=== PATIENT | male | born 1960 | race Caucasian/White ===

== ENCOUNTER 2021-03-28 06:10 | Day surgery (SDC) | payer OTHER ==
[~2021-03-28] VITALS: Ht 182.9 cm; Wt 83.0 kg
[2021-03-28 08:00] VITALS: BMI 24.8
[2021-03-28 08:07] LABS: BASOPHILS 0.4 % (0-2); EOSINOPHILS 1.6 % (0-7); HEMATOCRIT 39.6 % (42.0-54.0); HEMOGLOBIN 13.7 g/dL (13.5-17.5); IMMATURE GRANULOCYTES 0.3 % (0-5); LYMPHOCYTE ABS# 2.71 10x3/uL (1.32-3.57); LYMPHOCYTES 35.8 % (15-50); MCH 32.1 pg (26.0-34.0); MCHC 34.6 g/dL (31.0-37.0); MCV 92.7 fL (80.0-100.0); MEAN PLATELET VOLUME 9.1 fL (7.4-10.4); MONOCYTES 10.7 % (2-11); NEUTROPHIL ABS# 3.89 10x3/uL (1.78-5.38); NEUTROPHILS 51.2 % (40-80); PLATELET COUNT 196 10x3/uL (130-400); RBC 4.27 10x6/uL (4.20-6.10); WBC 7.6 10x3/uL (4.8-10.8)
[2021-03-28 08:19] LABS: CALC OSMOLALITY 278 mosm/kg (275-300); CHLORIDE - SERUM 104 mmol/L (98-107); CREATININE - SERUM 0.8 mg/dL (0.6-1.3); GLUCOSE 123 mg/dL (74-106); SODIUM 139 mmol/L (136-145); UREA NITROGEN 12 mg/dL (7-18); eGFR NON AFRICAN AMERICAN > 90 mL/min (90-120)
[2021-03-28 08:20] VITALS: BP 150/84; Ht 182.9 cm; Wt 83.0 kg
[2021-03-28] MEDS ORDERED: DEPAKOTE ER500 MG PO (08:34)
[2021-03-28] MEDS ORDERED: LISINOPRIL20 MG PO (08:35)
[2021-03-28] MEDS ORDERED: MIRALAX17 GM PO (08:35)
[2021-03-28] MEDS ORDERED: GLUCOPHAGE500 MG PO (08:36)
[2021-03-28] MEDS ORDERED: FIBER-LAX625 MG PO (08:37)
--- NOTE | 2021-03-28 12:24 | NUR ---
PT DESAT TO 30% ANESTHESIA PHYLLIS AT BEDSIDE.
--- NOTE | 2021-03-28 12:36 | NUR ---
PT DIFFICULT TO WAKE UP. PT CAN BEARLY HOLD HEAD UP.
--- NOTE | 2021-03-28 12:50 | NUR ---
PT DRIFTS OFF TO SLEEP. RESPONDS ON COMMAND. PT DESATS WHEN GOING TO SLEEP. WILL HOLD NARCOTICS AND COMMUNICATE ON REPORT.
--- NOTE | 2021-03-28 15:30 | NUR ---
DISCHARGED IN [facility] CUSTODY WITH TWO GUARDS VIA WHEELCHAIR
--- NOTE | 2021-03-28 16:26 | HP ---
PATIENT: CLARITZA ALBERT MEDICAL RECORD: [id number] ACCOUNT: [id number] LOCATION:[facility] : 58 ADMISSION DATE: 03/28/21 PCP: No PCP HISTORY AND PHYSICAL EXAMINATION CHIEF COMPLAINT: Large right inguinal hernia. I saw the patient during a telehealth visit. We discussed the pathophysiology of hernias as well as how they can be repaired. The discussion specifically included, but was not limited to, bleeding requiring emergency reoperation, infection, reherniation and chronic pain. PAST MEDICAL AND SURGICAL HISTORY: Hypertension, non-insulin dependent diabetes mellitus, constipation. Medicines of the fci have been reviewed. ALLERGIES: No known drug allergies. PHYSICAL EXAMINATION: GENERAL: The patient does not appear acutely ill. He does not appear chronically ill. VITAL SIGNS: Reviewed. EARS: External ears appear normal. EYES: Extraocular movements are intact. NECK: Trachea is midline. CHEST: No intercostal retractions. PULMONARY: Nonlabored. No stridor. ABDOMEN: Nontender. GENITOURINARY: A right inguinal hernia that is difficult to reduce. No left inguinal hernia. IMPRESSION: Right inguinal hernia, symptomatic, large. PLAN: Will be operative repair with mesh. TRANSINT:[id number] Voice Confirmation ID: [id number] DOCUMENT ID: [id number] NATALIE BISHOP MD at 1626 CC: ESPERANZA GARZA MD [id number] DICTATION DATE: 03/28/21 1018 DIE REPAIRER TRIMMER DIES: 03/28/21 1034 [facility] [address] [place] [address]
--- NOTE | 2021-04-27 12:26 | OP ---
PATIENT NAME: CLARITZA ALBERT MEDICAL RECORD: [id number] :58 LOCATION:[facility] ADMISSION DATE: SURGEON: KUSH BISHOP MD DATE OF OPERATION: 03/28/2021 PREOPERATIVE DIAGNOSIS: Symptomatic right inguinal hernia. POSTOPERATIVE DIAGNOSIS: Symptomatic right indirect inguinal hernia. PROCEDURE: Open right indirect inguinal hernia repair with bilayer preperitoneal polypropylene mesh. SURGEON: Kush Bishop MD PILLAR MAN: None. BLOOD LOSS: Minimal. ANESTHESIA: General. COMPLICATIONS: None. The risks and possible complications and alternatives to the procedure were explained to the patient. He elected to proceed. The discussion specifically included, but was not limited to, bleeding requiring emergency reoperation, infection, intestinal injury as well as chronic pain. DESCRIPTION OF PROCEDURE: The patient was conveyed to the operating room electively on 03/28/2021. General anesthesia was induced by the anesthesia staff. The abdomen and genitals were sterilely prepped and draped. A transverse incision was accomplished on the right groin. Sharp dissection was carried down through skin and subcutaneous tissue as well as To fascia. The external oblique aponeurosis was cleaned of overlying connective tissue. External oblique aponeurosis was then incised along the direction of its fibers. I bluntly dissected down through the internal oblique and transversus abdominis muscles. An indirect hernia was reduced. I opened up the hernia sac. There was no sliding component. It was ligated highly with 3-0 Vicryl. The sac was then transected distally. I then cut out 2 ovals of polypropylene mesh. The 2 ovals were sutured together one on top of the other with a 0 Surgidac suture. The mesh was then placed in the preperitoneal space. Once I was satisfied with placement of mesh, I allowed the internal oblique and transverse abdominis muscles to come together over the mesh. These were sutured together with multiple interrupted horizontal mattress 0 Surgidac incorporating portion of the underlying mesh. The external oblique aponeurosis was closed with running 0 Vicryl sutures. To's fascia was approximated with interrupted 3-0 Vicryl. The subdermis was approximated with interrupted 3-0 Vicryl. The skin was approximated with a running intracuticular 3-0 Vicryl. Benzoin and Steri-Strips were applied. The patient was then extubated and conveyed to the postanesthesia care unit where he was in stable condition. TRANSINT:[id number] Voice Confirmation ID: [id number] DOCUMENT ID: [id number] OPERATIVE REPORT [id number] CLARITZA ALBERT, KUSH PEREZ at 1226 CC: [id number] DICTATION DATE: 04/27/21 1116 BED AND BREAKFAST INNKEEPER: 04/27/21 1152 [facility] 03/28/21 [place] [id number]
== END 2021-03-28 15:30 | disposition home or self-care (01) ==
LOC: D.OPS 06:10
PROVIDERS: Anesthesiology; ATTEND Surgery
DX: K40.90 Unilateral inguinal hernia, without obstruction or gangrene, not specified as recurrent (principal); I10 Essential (primary) hypertension; E11.9 Type 2 diabetes mellitus without complications; K59.00 Constipation, unspecified